=== PATIENT | female | born 1995 | race Caucasian/White ===

== ENCOUNTER → 2017-04-11 | Outpatient (CLI) | payer BC ==
[~2017-04-11] MED LIST: IBUP-232 PO; ONDA4TAB7 SL; OXYC1TAB63 PO; PERI8.6T PO; PROM25TA10 PO; RANI150 PO; Z.0.NO CURRENT MEDS; ZOFR4TAB3 SL
[2017-04-11 12:42] LABS: AUTOMATED NEUTROPHIL # 5.6 TH/MM3 (1.8-7.7); BASOPHIL % 0.4 % (0.0-2.0); EOSINOPHIL # 0.2 TH/MM3 (0-0.4); EOSINOPHIL % 1.7 % (0.0-4.0); HEMO FLAGS DIFF FINAL; LYMPH % 33.8 % (9.0-44.0); LYMPHOCYTE # 3.2 TH/MM3 (1.0-4.8); MEAN CELL VOLUME 88.8 FL (80.0-100.0); MEAN CORPUSCULAR HGB CONC 32.7 % (32.0-36.0); MONO % 5.2 % (0.0-8.0); NEUT % 58.9 % (16.0-70.0); PLATELET COUNT 283 TH/MM3 (150-450); RED BLOOD COUNT 4.62 MIL/MM3 (4.00-5.30); WHITE BLOOD COUNT 9.5 TH/MM3 (4.0-11.0)
[2017-04-11 12:59] LABS: BACTERIA, URINE RARE /hpf; BLOOD, URINE NEG (NEG); GLUCOSE,URINE NEG (NEG); KETONE, URINE NEG (NEG); MUCUS URINE FEW /lpf (OCC); NITRITE,URINE NEG (NEG); SQUAMOUS EPITHELIAL CELL URINE 12 /hpf (0-5); URINE COLOR YELLOW (YELLW/STRAW)
[2017-04-11 13:06] LABS: ANION GAP 6 MEQ/L (5-15); BICARBONATE 27.7 MEQ/L (21.0-32.0); BLOOD UREA NITROGEN 8 MG/DL (7-18); CHLORIDE 104 MEQ/L (98-107); GLOMERULAR FILTRATION RATE 117 ML/MIN (>89); GLUCOSE,FASTING 88 MG/DL (74-99); POTASSIUM 4.1 MEQ/L (3.5-5.1); SODIUM (NA) 138 MEQ/L (136-145)
[2017-04-11 13:12] LABS: BHCG SCREEN QUALITATIVE LESS THAN 1 MIU/ML (0-5)
== END ==
LOC: CPRE 11:44
PROVIDERS: ATTEND Obstetrics & Gynecology
DX: Z01.812 Encounter for preprocedural laboratory examination (principal); N83.202 Unspecified ovarian cyst, left side
CPT/HCPCS: 36415; 80048; 81001; 84703; 85025

== ENCOUNTER 2017-04-23 07:51 | Inpatient (IN) | payer BC ==
[~2017-04-23] VITALS: Ht 142.2 cm; Wt 84.3 kg
[2017-04-23 08:41] VITALS: BP 114/57; PULSE 77; RESP 18; TEMP 98.3; O2SAT 98
[2017-04-23] MEDS ORDERED: INSULIN HUMAN REGULAR 1,000 UNITS/10 ML VIAL SQ PRN (08:45)
[2017-04-23] MEDS ORDERED: ceFAZolin 2 GM PREMIX 50 ML IV SCH (08:45)
[2017-04-23] MEDS ORDERED: LACTATED RINGER'S 1000 ML IV PRN (08:45)
[2017-04-23] MEDS ORDERED: POVIDONE IODINE 5% (ANTISEPSIS KIT) 4 APPLICATIONS EACH NARE PRN (08:45)
[2017-04-23] MEDS ORDERED: METOPROLOL TARTRATE 25 MG TAB PO PRN (08:45)
[2017-04-23] MEDS ORDERED: CHLORHEXIDINE GLUCONATE 2 % 1 PACK (2 CLOTHS) TOPICAL PRN (08:45)
[2017-04-23] MEDS ORDERED: SODIUM CHLORID 0.9% 500 ML IV PRN (08:45)
[2017-04-23] MEDS ORDERED: SODIUM CHLOR 0.9% 250 ML INJ 250 ML ONE (08:47)
[2017-04-23] MEDS ORDERED: BUPIVACAINE HCL PF 0.5% 30 ML VIAL ONE (08:47)
[2017-04-23] MEDS ORDERED: VASOPRESSIN INJ 20 UNITS/ML VIAL ONE (08:47)
[2017-04-23] MEDS ORDERED: MICROFIBRILLAR COLLAGEN HEMOSTAT 1 GM PKT ONE (08:47)
[2017-04-23 09:07] LABS: BLOOD, URINE NEG (NEG); GLUCOSE,URINE NEG (NEG); HYALINE CAST, URINE 1 /lpf (RARE); KETONE, URINE NEG (NEG); MUCUS URINE FEW /lpf (OCC); NITRITE,URINE NEG (NEG); SQUAMOUS EPITHELIAL CELL URINE <1 /hpf (0-5); TRANSITIONAL EPI CELLS, URINE <1 /hpf; URINE COLOR YELLOW (YELLW/STRAW)
[2017-04-23] MEDS ORDERED: NEOSTIGMINE 3 MG/3 ML SYR IV ONE (09:07)
[2017-04-23] MEDS ORDERED: PROPOFOL 200 MG/20 ML AMP IV ONE (09:07)
[2017-04-23] MEDS ORDERED: KETOROLAC TROMETHAMINE 60 MG/2 ML (IM) VIAL IM ONE (09:08)
[2017-04-23] MEDS ORDERED: LACTATED RINGER'S 1000 ML INJ 1,000 ML IV ONE (09:08)
[2017-04-23] MEDS ORDERED: ONDANSETRON HCL 4 MG/2 ML VIAL IV PUSH ONE (09:08)
[2017-04-23 09:09] LABS: COMMENT (UR) CATH-CULT NOT IND; CULTURE IF INDICATED CATH CULTURE NOT IND
[2017-04-23 09:42] LABS: BETA HCG QUANT LESS THAN 1 MIU/ML (0-5)
[2017-04-23] MEDS ORDERED: FAMOTIDINE 20 MG/2 ML VIAL ONE (10:06)
[2017-04-23] MEDS ORDERED: DEXAMETHASONE SOD PHOS 4 MG/ML VIAL ONE (10:06)
[2017-04-23] MEDS ORDERED: MIDAZOLAM HCL 2 MG/2 ML VIAL ONE (10:06)
[2017-04-23] MEDS ORDERED: diphenhydrAMINE HCL 25 MG CAP PO PRN (11:45)
[2017-04-23] MEDS ORDERED: ONDANSETRON ODT 4 MG TAB SL PRN (11:45)
[2017-04-23] MEDS ORDERED: oxyCODONE/ACETAMINOPHEN 5 MG/325 MG TAB PO PRN (11:45)
[2017-04-23] MEDS ORDERED: DOCUSATE SODIUM 100 MG CAP PO PRN (11:45)
[2017-04-23] MEDS ORDERED: PROMETHAZINE HCL 25 MG TAB PO PRN (11:45)
[2017-04-23] MEDS ORDERED: ONDANSETRON HCL 4 MG/2 ML VIAL IV PUSH PRN (11:45)
[2017-04-23] MEDS ORDERED: diphenhydrAMINE HCL 50 MG/ML VIAL IV PRN (11:45)
[2017-04-23] MEDS ORDERED: SODIUM CHLORIDE 0.9% FLUSH 10 ML FLUSH IV FLUSH PRN (11:45)
--- NOTE | 2017-04-23 11:58 | HHI.PR ---
Immediate Post Op Note Procedure Date: Apr 23, 2017 Pre Op Diagnosis: (1) Teratoma of left ovary Post Op Diagnosis: (1) Teratoma of left ovary Surgeon: Imelda Hayden Pouring Crane Operator(s): MD Waqar Gaona, MS3 Procedure: Exam under anesthesia, exploratory laparotomy, left ovarian cystectomy, peritoneal washings Findings: enlarged 8 cm right ovary with complex cyst filled with sebum, hair, skin, and other ectodermal and possible other tissues types, frozen section confirms mature cystic teratoma; normal nulliparous uterus and normal appearing bilateral fallopian tubes and right ovary; normal left ovary after successful cystectomy Complications: none Specimen(s) removed: peritoneal washings left ovarian cyst Estimated blood loss: 100 mL Anesthesia: General Drains: None Fluids: 1200 mL IVF Patient to: PACU Patient Condition: Good Imelda Hayden MD Apr 23, 2017 11:58
[2017-04-23] MEDS ORDERED: fentaNYL CITRATE 250 MCG/5 ML AMP ONE (12:00)
[2017-04-23] MEDS ORDERED: DO NOT ADM ANY ANTICOAGULANT DRUGS PRN (12:00)
[2017-04-23] MEDS ORDERED: *MEPERIDINE 25 MG INJ VIAL PERIprocedural Use ONLY ONE (12:03)
[2017-04-23] MEDS ORDERED: *morphine SULFATE 8 MG/ML PERIprocedure ONLY ONE ×3 (12:11→13:34)
[2017-04-23] MEDS: KETOROLAC TROMETHAMINE 30 MG/ML (IVP) VIAL IV PUSH SCH ×2 (12:15→17:29)
[2017-04-23] MEDS: ACETAMINOPHEN 1000 MG/100 ML VIAL IV SCH ×2 (12:15→17:28)
[2017-04-23] MEDS: LACTATED RINGER'S 1000 ML INJ 1,000 ML IV SCH (13:00)
[2017-04-23 14:45] VITALS: BP 101/62; PULSE 112; RESP 22; TEMP 97.5; O2SAT 98
--- NOTE | 2017-04-23 14:52 | MP ---
cc: KANNAN ROBBINS M.D. DATE OF SURGERY: 04/23/2017 DATE OF : 1995 PREOPERATIVE DIAGNOSIS Complex left ovarian cyst, suspected teratoma. POSTOPERATIVE DIAGNOSIS 1. Complex left ovarian cyst, suspected teratoma. 2. Postop day number zero. INDICATIONS Ronna Hernandez is a 21-year-old 0, who has a history of irregular menses. The workup included a pelvic ultrasound back in November of 2016 which showed a small 3cm left ovarian cyst, suspected dermoid. At that time the patient's hormones were basically within normal range other than suggestive of polycystic ovarian syndrome and the patient was asymptomatic from the ovarian cyst. She was scheduled for followup ultrasound 3-4 months later, when ultrasound was repeated in March the cyst had grown markedly to 8.5 cm. Due to this change and concern for risk for torsion as well as possibility of a non benign tissue type, she was scheduled for surgery. PROCEDURE PERFORMED 1. Exam under anesthesia. 2. Exploratory laparotomy. 3. Left ovarian cystectomy. 4. Peritoneal washings. SURGEON Kannan Robbins MD AUTO SERVICER SURGEON Linette Fairbanks MD ANESTHESIA General. ESTIMATED BLOOD LOSS 100 mL. IV FLUID REPLACEMENT 1200 mL. URINE OUTPUT 200 mL clear urine draining in the Sauceda bag at the end of procedure. PROPHYLAXIS Ancef 2 grams IV was given preoperatively. SCDs were on and functioning throughout the entire case. COMPLICATIONS None. COUNTS Counts of sponge, lap, instrument and needle are correct x2 at the conclusion of the procedure. INTRAOPERATIVE FINDINGS Include normal external female genitalia, nulliparous, 1 cm mobile cervix, uterus not able to be palpated due to large approximately 8-9 cm left adnexal mass. On intraabdominal evaluation complex appearing left ovarian mass with sebaceous material, hair, calcifications visualized and palpated through intact cyst wall. Normal appearing bilateral fallopian tubes, right ovary and uterus. There were no adhesions or scar tissue. There was no sign of any peritonitis. SPECIMEN 1. Left ovarian cyst. 2. Peritoneal washings. PROCEDURE IN DETAIL After reviewing the informed consent, the patient was taken to the operating room where a time-out was performed to identify the patient, the planned procedure and any known allergies to drugs or drug products. The patient was then placed in dorsal supine position and general anesthesia was administered without difficulty and found to be adequate. Exam under anesthesia was performed with results as listed above. The patient was then prepped and draped in standard fashion. Sauceda catheter was placed using sterile technique. Attention was turned abdominally. Scalpel was used to make a Pfannenstiel type skin incision. The incision was carried down to the underlying layer of fascia with the Bovie. Fascia was incised in the midline, incision was extended laterally with sharp dissection using Jones scissors. Superior edge of the fascial incision was elevated with Farida clamps. Rectus muscles were dissected off sharply with Jones scissors. Kochers were then moved to the inferior aspect of the fascial incision and again rectus muscles were dissected off sharply using Jones scissors. Rectus muscles were then in the midline. Peritoneum was identified and entered bluntly. Incision was extended superiorly and inferiorly with good visualization of intra-abdominal contents. O'Nando-O'Shrestha retractor was placed. Sterile moist lap sponges were used to pack the bowel out of the operative field. Peritoneal washings were obtained. The large left ovarian cyst was immediately visible upon entry into the peritoneal cavity. A laparoscopic bag was opened and situated underneath the cyst so as to prevent any possible contamination to the peritoneal cavity if the cyst ruptured upon removal. Using a scalpel the ovarian cortex was sharply incised, allowing separation of the cyst wall from the overlying ovarian tissue. Using blunt dissection, the cyst capsule was successfully dissected out and away from the normal ovarian tissue with the cyst wall completely intact. The cyst was then sent for frozen section evaluation which was read as a mature cystic teratoma without any signs of malignancy. The left ovary and peritoneal cavity were then copiously irrigated. The left ovary was closed in layer of two pursestring type deep sutures within the ovarian cortex and then a running layer along the outer incision line using 2-0 Vicryl. Additional irrigation with suction was performed. Hemostasis was ensured in all areas. Sterile moist lap sponges and retractor were removed. The peritoneum was then closed in a running fashion with 2-0 Chromic. Fascia was closed in a running layer with 0 Vicryl. Subcutaneous tissue was irrigated copiously and closed in a series of interrupted sutures using 2-0 Chromic. Skin was then cleaned and dried and closed in subcuticular fashion with 4-0 Monocryl. Steri-Strips were placed as was a standard dressing. Procedure concluded at this point. Patient was awoken from anesthesia without complication. The patient tolerated the procedure well. She is now resting in the PACU area. Her estimated length of stay is one to two postoperative days. She will be admitted overnight for postoperative care at this time. MD MAISHA Bejarano/BERT /12:05 PM /2:31 PM JANET
[2017-04-23] MEDS: oxyCODONE/ACETAMINOPHEN 10 MG/325 MG TAB PO PRN (15:15)
[2017-04-23 16:00] VITALS: BP 99/54; PULSE 102; RESP 16; TEMP 98.9; O2SAT 94
[2017-04-23 20:52] VITALS: BP 102/69; PULSE 89; RESP 18; TEMP 98.6; O2SAT 100
[2017-04-23] MEDS: SODIUM CHLORIDE 0.9% FLUSH 10 ML FLUSH IV FLUSH SCH (21:00)
[2017-04-23 21:10] VITALS: O2SAT 93
[2017-04-24] MEDS: ACETAMINOPHEN 1000 MG/100 ML VIAL IV SCH ×2 (00:23→06:21)
[2017-04-24] MEDS: KETOROLAC TROMETHAMINE 30 MG/ML (IVP) VIAL IV PUSH SCH ×2 (00:23→06:19)
[2017-04-24] MEDS: LACTATED RINGER'S 1000 ML INJ 1,000 ML IV SCH (00:27)
[2017-04-24 00:32] VITALS: BP 106/63; PULSE 90; RESP 18; TEMP 97.9; O2SAT 95
[2017-04-24 04:47] VITALS: BP 102/62; PULSE 77; RESP 18; TEMP 99.2; O2SAT 95
[2017-04-24] MEDS ORDERED: ONDA4TAB7 SL (07:50)
[2017-04-24] MEDS ORDERED: OXYC1TAB63 PO (07:50)
[2017-04-24] MEDS ORDERED: PERI8.6T PO (07:50)
[2017-04-24] MEDS ORDERED: IBUP-232 PO (07:50)
[2017-04-24] MEDS ORDERED: PROM25TA10 PO (07:53)
[2017-04-24 08:00] VITALS: BP 115/63; PULSE 79; RESP 20; TEMP 98.1; O2SAT 93
[2017-04-24] MEDS: oxyCODONE/ACETAMINOPHEN 10 MG/325 MG TAB PO PRN ×2 (08:05→12:40)
[2017-04-24] MEDS: SODIUM CHLORIDE 0.9% FLUSH 10 ML FLUSH IV FLUSH SCH (08:08)
--- NOTE | 2017-04-24 08:10 | HHI.OB ---
Subjective Post Operative Day: 1 Remarks s/p ex-lap, L ovarian cystectomy, peritoneal washings for 10cm complex L ov mass ; frozen section showed mature cystic teratoma pt did well overnight, nausea improving, tolerating clears, becker just removed, has not yet voided, no flatus yet pain scale improved from 6/10 last evening to 3/10 today; controlled with motrin & tylenol Objective Vitals/I&O Vital Signs Date Time Temp Pulse Resp B/P Pulse Ox O2 Delivery O2 Flow Rate FiO2 04/24/17 04:47 99.2 77 18 102/62 95 04/24/17 01:23 18 04/24/17 00:32 97.9 90 18 106/63 95 04/23/17 21:10 93 21 04/23/17 20:52 98.6 89 18 102/69 100 04/23/17 17:58 18 04/23/17 16:00 98.9 102 16 99/54 94 04/23/17 14:45 97.5 112 22 101/62 98 04/23/17 14:20 102 16 96 Room Air 04/23/17 14:15 101 16 113/56 96 Room Air 04/23/17 14:00 97.8 100 16 106/58 95 Room Air 04/23/17 13:03 16 04/23/17 13:00 101 16 110/57 99 Nasal Cannula 2 04/23/17 12:45 98 16 113/65 98 Nasal Cannula 2 04/23/17 12:30 91 16 112/68 98 Nasal Cannula 2 04/23/17 12:29 16 04/23/17 12:16 16 04/23/17 12:15 89 17 118/71 97 Nasal Cannula 2 04/23/17 12:00 98.4 78 26 117/74 100 Nasal Cannula 3 04/23/17 08:41 98.3 77 18 114/57 98 Intake & Output 04/24/17 04/24/17 07:00 19:00 Output Total 325 ml 550 ml Balance -325 ml -550 ml Output Urine Total 325 ml 550 ml Objective Remarks GENERAL: Well-nourished, well-developed patient. CARDIOVASCULAR: Regular rate and rhythm without murmurs, gallops, or rubs. RESPIRATORY: Breath sounds equal bilaterally. No accessory muscle use. ABDOMEN/GI: Abdomen soft, tender as expected POD#1 around incision, bowel sounds present & nml. Incision: Clean, dry and intact. steri-strips in place. pfannenstiel/mini- lap incision GENITOURINARY: no bleeding EXTREMITIES: No cyanosis or edema, non-tender, without signs of DVT. SCDs on. Medications and IVs Current Medications Medications (Trade) Dose Ordered Sig/Verna Route Start Time Stop Time Status Last Admin Sodium Chloride 500 ml @ 30 mls/hr [id number] PRN IV 04/23/17 08:45 04/26/17 08:44 (Lr 1000 ml Inj) 1,000 ml @ 75 mls/hr [id number] IV 04/23/17 11:43 04/24/17 00:27 (NS Flush) 2 ml UNSCH PRN IV FLUSH 04/23/17 11:45 (NS Flush) 2 ml BID IV FLUSH 04/23/17 21:00 (Motrin) 600 mg Q6H PRN PO 04/24/17 11:45 (Percocet 5-325 Mg) 1 tab Q4H PRN PO 04/23/17 11:45 (Percocet 10-325 Mg) 1 tab Q4H PRN PO 04/23/17 11:45 04/23/17 15:15 (Zofran Odt) 4 mg Q6H PRN SL 04/23/17 11:45 (Zofran Inj) 4 mg Q6H PRN IV PUSH 04/23/17 11:45 04/23/17 15:15 (Phenergan) 25 mg Q6H PRN PO 04/23/17 11:45 04/23/17 17:27 (Benadryl Inj) 25 mg Q6H PRN IV 04/23/17 11:45 (Benadryl) 25 mg Q6H PRN PO 04/23/17 11:45 (Colace) 100 mg Q12H PRN PO 04/23/17 11:45 Miscellaneous Information ALL NURSING DEPARTME... UNSCH PRN .XX 04/23/17 12:00 04/24/17 11:59 Assessment/Plan Problem List: (1) Teratoma of left ovary (2) S/P ovarian cystectomy Assessment and Plan POD#1 doing well, advance diet, ambulate, if able to void & pain still well controlled w/ ambulation & tolerates diet will d/c to home today will re-eval later today for d/c routine supportive postop care Discharge Planning today or tmrw Imelda Hayden MD Apr 24, 2017 08:10
[2017-04-24 09:32] VITALS: O2SAT 95
--- NOTE | 2017-04-24 11:35 | HHI.DS ---
Discharge Summary Admission Date Apr 23, 2017 at 12:29 Discharge Date: Apr 24, 2017 Admitting Diagnosis complex left ovarian mass, scheduled surgery (1) S/P ovarian cystectomy Diagnosis: Principal (2) Teratoma of left ovary Diagnosis: Principal Procedures exam under anesthesia, exploratory laparotomy, left ovarian cystectomy, peritoneal washings Brief History 21 yo G0 virginal female presented to office for abnormal uterine bleeding in with h/o skipped cycles. Workup included blood work and pelvic ultrasound , labs suggested mild PCOS and small 3cm possible dermoid seen on L ovary. Pt was asymptomatic, desired conservative management, repeat sonogram was scheduled for 4 months. On repeat imaging L ovarian mass had increased in size to 8.5cm at largest dimension, due to rapid increase and large size concern for torsion, discussed surgical removal. Pt consented and was scheduled. Significant Findings Laboratory Tests Test 04/23/17 08:35 Urine Mucus FEW /lpf (OCC) PE at Discharge NAD A&O x 3 CTA b/l no wheeze RRR no murmur Abd soft non-distended, normal BS, sore as expected around incision incision c/d/i with steri-strips in place no c/c/e x 4 Hospital Course Pt had issues with nausea immediately postoperatively but did well overnight POD #0 and by POD#1 was ambulating, tolerating diet, pain was well controlled. Once pt was able to void she was discharged to home with office f/u in 2 weeks and detailed postoperative care instructions discussed at bedside. Pt Condition on Discharge: Good Discharge Disposition: Discharge Home Discharge Instructions DIET: Follow Instructions for: As Tolerated, No Restrictions Activities you can perform: Non Weight Bearing, Shower Only-No Bath, Pelvic Rest Activities to avoid: Strenuous Activity, Driving (x 2 weejs), Sexual Activity Imelda Hayden MD Apr 24, 2017 11:35
[2017-04-24] MEDS ORDERED: IBUPROFEN 600 MG TAB PO PRN (11:45)
[2017-04-24 12:00] VITALS: BP 136/67; PULSE 85; RESP 20; TEMP 98.7; O2SAT 98
== END 2017-04-24 15:23 | disposition home or self-care (01) | DRG 743 ==
LOC: HSDC 07:51 → HSDI 11:47 → OBSVTOIN 12:29 → HOCB 14:28
PROVIDERS: ADMIT Obstetrics & Gynecology; ATTEND Obstetrics & Gynecology
PROC: 0UB10ZZ Excision of Left Ovary, Open Approach (ICD-10-PCS; principal; 2017-04-23 10:09)
DX: D27.1 Benign neoplasm of left ovary (principal)
CPT/HCPCS: 81001; 84702; 86850; 86900; 86901; 88304; 88307; 88311; 88331; J0131; J0690; J1100; J1885; J2175; J2250; J2270; J2405; J2710; J3010; J7050; J7120; Q0169